=== PATIENT | female | born 1990 | race Caucasian/White ===

== ENCOUNTER 2016-10-03 21:18 | Emergency (ER) | payer OTHER ==
[~2016-10-03] VITALS: Ht 157.5 cm; Wt 49.9 kg
[2016-10-03 21:27] VITALS: BP 125/77
[2016-10-03 22:24] LABS: KETONES,URINE NEGATIVE (NEGATIVE); LEUKOCYTE ESTERASE ,URINE 2+ (NEGATIVE)
[2016-10-03] MEDS ORDERED: MAGNESIUM CITRATE 296 ML BOTTLE ONE (22:29)
[2016-10-03] MEDS ORDERED: NITROFURANTOIN/NITROFURAN MAC 100 MG CAPSULE ONE (22:29)
[2016-10-03 22:30] LABS: PREGNANCY TEST URINE QUAL NEGATIVE (NEGATIVE)
[2016-10-03 22:42] LABS: ADD UA MICROSCOPIC YES
[2016-10-03] MEDS ORDERED: NITROFURANTOIN MACROCRYSTAL 50 MG CAPSULE PO STA (22:46)
[2016-10-03 22:47] LABS: ADD URINE CULTURE YES; RBC,URINE TOO NUMEROUS TO COUN /HPF (0-2); WBC,URINE TOO NUMEROUS TO COUN /HPF (0-3)
== END 2016-10-03 22:52 | disposition home or self-care (01) ==
LOC: ER 21:18
DX: N39.0 Urinary tract infection, site not specified (principal)
CPT/HCPCS: 81000-TC; 84703-TC; 87086-TC; 87186-TC; A4606; Z7610